=== PATIENT | male | born 1955 | race Caucasian/White ===

== ENCOUNTER 2020-02-01 18:46 | Emergency (ER) | payer MEDICAID ==
[~2020-02-01] VITALS: Ht 175.3 cm; Wt 84.4 kg
[2020-02-01 18:52] VITALS: BP 140/92
--- NOTE | 2020-02-01 19:20 | NUR ---
pt triaged and brought to lobby.
--- NOTE | 2020-02-01 19:52 | NUR ---
YESI HERNANDEZ ASSESSING PT IN TRIAGE ROOM
--- NOTE | 2020-02-01 20:00 | NUR ---
C/O WEAKNESS & SHAKING X 1 WEEK. STEADY GAIT. A&OX4. SPEECH IS CLEAR. NO DISTRESS NOTED. NEG FAST SCREEN. VSS. EQUAL BILAT ARM STRENGTH. MED HX: PAKINSON'S DISEASE MED: SELEGILIN, CITALOPRAM, ROPINIROLE,AMANTADINE
[2020-02-01 20:28] LABS: BASOPHILS % (AUTO) 0.4 % (0.0-2.0); EOSINOPHILS % (AUTO) 0.3 % (0.0-4.0); HEMOGLOBIN 12.5 g/dL (12.0-18.0); LYMPHOCYTES # (AUTO) 1.5 K/uL (2.0-11.5); LYMPHOCYTES % (AUTO) 24.6 % (20.5-51.1); MEAN CORPUSCULAR HEMOGLOBIN 32 pg (27-31); MEAN CORPUSCULAR HGB CONC 33 g/dL (33-37); MEAN CORPUSCULAR VOLUME 96.5 fL (80-94); MONOCYTES # (AUTO) 0.5 K/uL (0.8-1.0); MONOCYTES % (AUTO) 8.5 % (1.7-9.3); NEUTROPHILS # (AUTO) 4.1 K/uL (1.8-7.7); NEUTROPHILS % (AUTO) 66.2 % (42.2-75.2); PLATELET COUNT (AUTO) 250 K/uL (140-450); RED BLOOD CELL COUNT(AUTO) 3.94 MIL/uL (4.20-6.10); WHITE BLOOD COUNT (AUTO) 6.3 K/uL (4.8-10.8)
[2020-02-01 20:36] LABS: ANION GAP 14.1 (8-16); CARBON DIOXIDE 28.9 mmol/L (21-32); CREATININE 1.5 mg/dL (0.6-1.3); TOTAL BILIRUBIN 0.6 mg/dL (0.0-1.0)
[2020-02-01 20:47] LABS: APPEARANCE,URINE HAZY (CLEAR); BILIRUBIN,URINE NEGATIVE (NEGATIVE); BLOOD, URINE NEGATIVE (NEGATIVE); COLOR,URINE YELLOW (YELLOW); LEUKOCYTE ESTERASE ,URINE NEGATIVE (NEGATIVE); NITRITE, URINE NEGATIVE (NEGATIVE); PH,URINE 5.5 (5.0-9.0); UGLUCOSE NEGATIVE (NEGATIVE)
[2020-02-01] MEDS ORDERED: NACL 0.9% 1,000 ML IV ONE (21:40)
[2020-02-01 23:44] VITALS: BP 159/87
--- NOTE | 2020-02-01 23:44 | NUR ---
Patient discharged with v/s stable. Written and verbal after care instructions given and explained. Patient alert, oriented and verbalized understanding of instructions. Ambulatory with steady gait. All questions addressed prior to discharge. ID band removed. Patient advised to follow up with PMD. Rx of AMANTADINE, SELEGILINE, CITALOPRAM given. Patient educated on indication of medication including possible reaction and side effects. Opportunity to ask questions provided and answered.
--- NOTE | 2020-02-02 10:01 | NUR ---
LATE ENTRY- NORMAL SALINE 0.9% IV DISCONTINUED AT 2344.
== END 2020-02-01 23:44 | disposition home or self-care (01) ==
LOC: MED 18:46
DX: G20 Parkinson's disease (principal); E86.0 Dehydration; R53.1 Weakness; Z76.0 Encounter for issue of repeat prescription
CPT/HCPCS: 36415; 71045; 80053; 81003; 83880; 84484; 85025; 93005; 96360; 96361; 99285; J7030